=== PATIENT | female | born 1945 | race Caucasian/White ===

== ENCOUNTER 2018-11-13 22:39 | Emergency (ER) | payer MEDICARE, BC ==
--- NOTE | 2018-11-13 23:06 | Emergency Department Record ---
History of Present Illness - General Chief complaint: Edema Stated complaint: LT LEG SWELLLING Time Seen by Provider: 11/13/18 22:42 Source: Patient Mode of Arrival: Ambulatory Limitations: No limitations - History of Present Illness Initial comments: 73 yo female presents to ED for evaluation of swelling to the left lower extremity for the past several days. Patient denies history of DVT, denies history of CHF, denies use of anticoagulation medications. Patient denies recent immobilization or prolonged flight/car trips. Patient does report sacral fracture in July of this year, has been involved in PT through [facility]. MD Complaint: Extremity swelling Onset/Timin -: Days(s) Location: Left, Lower Leg History of Same: No Radiation: None Consistency: Constant Improves with: Nothing Worsens with: Nothing Associated Symptoms: Denies other symptoms - Related Data Allergies Allergy/AdvReac Type Severity Reaction Status Date / Time certolizumab pegol Allergy Mild NAUSEA Unverified 11/13/18 23:03 [From Cimzia] prochlorperazine Allergy Mild NAUSEA Unverified 11/13/18 23:03 [From Compazine] prochlorperazine edisylate Allergy Mild NAUSEA Unverified 11/13/18 23:03 [From Compazine] prochlorperazine maleate Allergy Mild NAUSEA Unverified 11/13/18 23:03 [From Compazine] ondansetron HCl Allergy RASH Unverified 02/09/17 12:52 [From Zofran (as hydrochloride)] Review of Systems Constitutional: Denies: Chills, Fever, Malaise, Night sweats Eyes: Denies: Eye discharge, Eye pain ENT: Denies: Congestion, Ear pain, Epistaxis Respiratory: Denies: Cough, Dyspnea Cardiovascular: Reports: Edema. Denies: Chest pain, Dyspnea on exertion Endocrine: Denies: Fatigue, Heat or cold intolerance Gastrointestinal: Denies: Abdominal pain, Nausea, Vomiting Genitourinary: Denies: Incontinence, Retention Musculoskeletal: Denies: Arthralgia, Back pain Skin: Denies: Bruising, Change in color Neurological: Denies: Abnormal gait, Confusion, Headache, Tingling, Tremors Psychiatric: Denies: Anxiety Hematological/Lymphatic: Denies: Anemia, Blood Clots Past Medical History - SOCIAL HISTORY Smoking Status: Former smoker - RESPIRATORY Hx Respiratory Disorders: No Hx Sleep Apnea: Yes Hx of CPAP: No - CARDIOVASCULAR Hx Cardio Disorders: No - NEURO Hx Neuro Disorders: Yes Hx Headaches: Yes Comment:: Fibromyalgia; small bleed in brain - GI Hx GI Disorders: Yes Hx Reflux: Yes - Hx Genitourinary Disorders: Yes Comment:: OAB - ENDOCRINE Hx Endocrine Disorders: No - MUSCULOSKELETAL Hx Musculoskeletal Disorders: Yes Hx Arthritis: (RA) - PSYCH Hx Psych Problems: No - HEMATOLOGY/ONCOLOGY Hx Hematology/Oncology Disorders: No Family Medical History Hx Cancer: Father Hx Heart Disease: Father, Mother, Grandparents *Heart Comment: [place]: Afib, pacer; CHF Hx Resp Disorders: Father, Grandparents Physical Exam - General General Appearance: Alert, Oriented x3, Cooperative, Mild distress Limitations: No limitations - Head Head exam: Atraumatic, Normocephalic, Normal inspection Head exam detail: negative: Abrasion, Contusion, Stringer's sign, General tenderness, Hematoma, Laceration - Eye Eye exam: Normal appearance. negative: Conjunctival injection, Periorbital swelling, Periorbital tenderness, Scleral icterus - ENT Ear exam: negative: Auricular hematoma, Auricular trauma Nasal Exam: negative: Active bleeding, Discharge, Dried blood, Foreign body Mouth exam: negative: Drooling, Laceration, Muffled voice, Tongue elevation - Neck Neck exam: Normal inspection. negative: Meningismus, Tenderness - Respiratory Respiratory exam: Normal lung sounds bilaterally. negative: Respiratory distress, Rhonchi, Stridor, Wheezes - Cardiovascular Cardiovascular Exam: Regular rate, Normal rhythm, Normal heart sounds - GI/Abdominal GI/Abdominal exam: Soft. negative: Distended, Rebound, Rigid, Tenderness - Rectal Rectal exam: Deferred - exam: Deferred - Extremities Extremities exam: Pedal edema, Other (There is 2+ edema LLE compared with trace edema RLE.). negative: Calf tenderness, Tenderness - Back Back exam: Denies: CVA tenderness (R), CVA tenderness (L) - Neurological Neurological exam: Alert, Normal gait, Oriented X3 - Psychiatric Psychiatric exam: Normal affect, Normal mood - Skin Skin exam: Normal color. negative: Abrasion Type of lesion: negative: abrasion Course - Reevaluation(s) Reevaluation #1: 11/13/18 23:05 Patient was seen and examined Doppler is un-available at this time of night. Will order D-Dimer and basic laboratory studies to assess for DVT/renal function and reassess. Reevaluation #2: 11/13/18 23:30 Laboratory studies were reviewed, D-Dimer is 0.64. Laboratory studies are otherwise grossly unremarkable for an acute process. Will initiate transfer to [facility] for doppler examination. Reevaluation #3: 11/13/18 23:38 Case was discussed with Dr. Noguera, will accept transfer for lower extremity doppler. Medical Decision Making - Lab Data Result diagrams: 11/13/18 23:08 11/13/18 23:08 Disposition Disposition: Transfer Clinical Impression: Edema of left lower extremity Disposition: Acute Care Hospital Transfer Transfer To: [facility] Reason For Transfer: Doppler US of the LLE Accepting Physician: Chuckie Time Discussed w/Accepting Physician: 23:37 Condition: (2) Stable Forms: Patient Portal Access Time of Disposition: 23:37 Quality - Quality Measures Quality Measures: N/A - Blood Pressure Screening Does Patient Have Any of the Following: No Blood Pressure Classification: Pre-Hypertensive BP Reading Systolic Measurement: 127 Diastolic Measurement: 75 Screening for High Blood Pressure: < Pre-Hypertensive BP, F/U Documented > [G8950] Pre-Hypertensive Follow-up Interventions: Referral to alternative/primary care provider.
[2018-11-13 23:16] LABS: ABSOLUTE NEUTROPHIL COUNT 3.98; BASO % 0.3 % (0-6); GRAN % 68.7 % (47-80); HEMATOCRIT 38.3 % (35.0-47.0); HEMOGLOBIN 12.3 gm/dl (11.6-16.0); MEAN CELL VOLUME 84.9 fl (81-97); MEAN CORPUSCULAR HEMOGLOBIN 27.3 pg (27-33); MEAN CORPUSCULAR HGB CONC 32.1 g/dl (32-36); MEAN PLATELET VOLUME 11.1 fl (7.4-10.4); PLATELET COUNT 197 K/uL (130-400); RED BLOOD COUNT 4.51 M/uL (3.80-5.40); WHITE BLOOD COUNT W/O DIFF 5.8 K/uL (4.2-12.2)
[2018-11-13 23:27] LABS: BLOOD UREA NITROGEN 25 mg/dL (8-23); CREATININE 0.7 mg/dL (0.5-0.9); EST GLOMERULAR FILTRATION RATE > 60 mL/min
[2018-11-13 23:30] LABS: GLUCOSE,RANDOM 191 mg/dL (74-109)
== END 2018-11-13 23:54 | disposition short-term general hospital (02) ==
LOC: ER 22:39
DX: R60.0 Localized edema (principal); R79.89 Other specified abnormal findings of blood chemistry; E11.9 Type 2 diabetes mellitus without complications; Z87.891 Personal history of nicotine dependence
CPT/HCPCS: 80048; 85025; 85379; 99285

== ENCOUNTER 2019-01-06 14:03 | Emergency (ER) | payer MEDICARE, BC ==
[2019-01-06] MEDS ORDERED: DIPHENHYDRAMINE HCL 50 MG/ML VIAL IM ONE (14:20)
--- NOTE | 2019-01-06 14:20 | Emergency Department Record ---
History of Present Illness - General Chief complaint: Rash Stated complaint: RASH Time Seen by Provider: 01/06/19 14:10 Source: Patient Mode of Arrival: Ambulatory Limitations: No limitations - History of Present Illness Initial comments: The patient states she has a hx of a chronic rash on her arms and legs. She states she gets it every month for 4-5 days and then it resolved. Now the patient has had the rash for 4 days but it is not going away. She denies any Cp, SOB, SKY, or any difficulty swallowing. She also denies any new medicines or any recent illnesses. The patient has been taking Atarax for the rash twice a day but it is not helping. MD complaint: Rash Onset/Timin -: Days(s) Improves with: None Worsens with: None Context: None Associated symptoms: Denies other symptoms - Related Data Home Medications Medication Instructions Recorded Confirmed Last Taken Hyoscyamine Sulfate 0.125 mg PO TID 01/06/19 01/06/19 Unknown Lisinopril/Hydrochlorothiazide 1 each PO DAILY 01/06/19 01/06/19 Unknown [Lisinopril-Hctz 20-12.5 mg Tab] Sulfamethoxazole/Trimethoprim 1 each PO BID 01/06/19 01/06/19 Unknown [Bactrim Ds Tablet] Previous Rx's Medication Instructions Recorded Diphenhydramine HCl [Benadryl] 25 mg PO Q6H #20 cap 01/06/19 Allergies Allergy/AdvReac Type Severity Reaction Status Date / Time certolizumab pegol Allergy Mild NAUSEA Unverified 11/13/18 23:03 [From Cimzia] prochlorperazine Allergy Mild NAUSEA Unverified 11/13/18 23:03 [From Compazine] prochlorperazine edisylate Allergy Mild NAUSEA Unverified 11/13/18 23:03 [From Compazine] prochlorperazine maleate Allergy Mild NAUSEA Unverified 11/13/18 23:03 [From Compazine] ondansetron HCl Allergy RASH Unverified 02/09/17 12:52 [From Zofran (as hydrochloride)] Travel Screening - Travel/Exposure Within Last 30 Days Have you traveled within the last 30 days?: No - Travel/Exposure Within Last Year Have you traveled outside the [place] in the last year?: No - Additonal Travel Details Have you been exposed to anyone with a communicable illness?: No - Travel Symptoms Symptom Screening: None Review of Systems Constitutional: Denies: Chills, Fever Eyes: Denies: Eye discharge ENT: Denies: Congestion Respiratory: Denies: Cough, Dyspnea Past Medical History - SOCIAL HISTORY Smoking Status: Former smoker Alcohol Use: None Drug Use: None - RESPIRATORY Hx Respiratory Disorders: No Hx Sleep Apnea: Yes Hx of CPAP: No - CARDIOVASCULAR Hx Cardio Disorders: No - NEURO Hx Neuro Disorders: Yes Hx Headaches: Yes Comment:: Fibromyalgia; small bleed in brain - GI Hx GI Disorders: Yes Hx Reflux: Yes - Hx Genitourinary Disorders: Yes Comment:: OAB - ENDOCRINE Hx Endocrine Disorders: No Hx Diabetes: Yes (type 2) - MUSCULOSKELETAL Hx Musculoskeletal Disorders: Yes Hx Arthritis: (RA) - PSYCH Hx Psych Problems: No Hx Depression: Yes - HEMATOLOGY/ONCOLOGY Hx Hematology/Oncology Disorders: No Family Medical History Any Significant Family History?: No Hx Cancer: Father Hx Heart Disease: Father, Mother, Grandparents *Heart Comment: [place]: Afib, pacer; CHF Hx Resp Disorders: Father, Grandparents Physical Exam - General General Appearance: Alert, Oriented x3, Cooperative, No acute distress - Head Head exam: Atraumatic, Normocephalic, Normal inspection - Eye Eye exam: Normal appearance, PERRL, EOMI - ENT Throat exam: Normal inspection. negative: Tonsillar erythema, Tonsillar exudate - Neck Neck exam: Normal inspection, Full ROM. negative: Tenderness - Respiratory Respiratory exam: Normal lung sounds bilaterally. negative: Respiratory distress - Cardiovascular Cardiovascular Exam: Regular rate, Normal rhythm, Normal heart sounds - GI/Abdominal GI/Abdominal exam: Soft, Normal bowel sounds. negative: Tenderness - Extremities Extremities exam: Normal inspection, Full ROM, Normal capillary refill. negative: Tenderness - Neurological Neurological exam: Alert. negative: Motor sensory deficit - Skin Skin exam: Urticaria (There is a blanching urticarial rash to the arms and posterior L leg. It is not tender or warm and there is no arm or leg swelling or pain.) Course Vital Signs 01/06/19 14:06 Temperature 98.0 F Pulse Rate 95 H Respiratory 16 Rate Blood Pressure 118/73 Pulse Ox 96 - Reevaluation(s) Reevaluation #1: The patient is doing well at this time and the itching is gone. She is ready for home. 01/06/19 14:39 Reevaluation #2: After reviewing the patient's medication sheet it seems she has been on Bactrim for a UTI for 5 days. The patient states the rash started before the Bactrim and she has had the drug multiple times without any issues. She does not believe the rash is due to the Bactrim and would like to continue it per her doctor's instructions. 01/06/19 14:43 Disposition Disposition: Discharge Clinical Impression: Urticaria Disposition: Home, Self-Care Condition: (2) Stable Instructions: Acute Rash (ED) Additional Instructions: Please take the Benadryl as directed and please see your family doctor later this week if not better. Prescriptions: Diphenhydramine HCl [Benadryl] 25 mg PO Q6H #20 cap Forms: Patient Portal Access Time of Disposition: 14:41 Quality - Quality Measures Quality Measures: N/A - Blood Pressure Screening View Details: Yes Does Patient Have Any of the Following: No Blood Pressure Classification: Normal BP Reading Systolic Measurement: 118 Diastolic Measurement: 73 Screening for High Blood Pressure: < Normal BP, F/U Not Required > [G8783]
== END 2019-01-06 14:47 | disposition home or self-care (01) ==
LOC: ER 14:03
DX: L50.8 Other urticaria (principal); Z87.891 Personal history of nicotine dependence; E11.9 Type 2 diabetes mellitus without complications
CPT/HCPCS: 96372; 99284; J1200

== ENCOUNTER 2019-03-22 20:57 | Emergency (ER) | payer MEDICARE, BC ==
[2019-03-22 21:42] LABS: ABSOLUTE NEUTROPHIL COUNT 6.34; BASO % 0.1 % (0-6); EOS % 3.4 % (0-6); GRAN % 72.8 % (47-80); HEMATOCRIT 38.1 % (35.0-47.0); LYMPH % 14.8 % (16-45); MEAN CORPUSCULAR HEMOGLOBIN 25.2 pg (27-33); MEAN CORPUSCULAR HGB CONC 31.5 g/dl (32-36); MEAN PLATELET VOLUME 10.2 fl (7.4-10.4); MONO % 8.9 % (0-9); PLATELET COUNT 356 K/uL (130-400); RED BLOOD COUNT 4.76 M/uL (3.80-5.40); RED CELL DISTRIBUTION WIDTH 15.9 % (11.5-14.5); WHITE BLOOD COUNT W/O DIFF 8.7 K/uL (4.2-12.2)
[2019-03-22 21:56] LABS: BILIRUBIN,TOTAL 0.3 mg/dL (0.2-1.0); CREATININE 1.4 mg/dL (0.5-0.9)
[2019-03-22 21:57] LABS: TOTAL PROTEIN 7.2 g/dL (6.6-8.7)
[2019-03-22 22:02] LABS: ALB/GLOB RATIO 1.3 (1.1-1.8)
--- NOTE | 2019-03-22 22:21 | CT SCAN REPORT ---
EXAMINATION: CT Abdomen and Pelvis without IV Contrast EXAM DATE: 03/22/2019 10:13 PM TECHNIQUE: Standard protocol CT imaging of the abdomen and pelvis was performed without intravenous c ontrast. INDICATION: fall COMPARISON: None ENCOUNTER: Not applicable CT ABDOMEN AND PELVIS FINDINGS: Lung Bases: Sliding-type hiatal hernia Hepatobiliary: The liver has a normal size with a smooth surface. Pancreas: The pancreas is normal. Spleen: Splenic granulomatous disease Adrenals: The adrenal glands are normal. Kidneys, Ureters, & Bladder: Both kidneys have a normal size and morphology. There is no hydronephro sis. Both ureters have a normal course and caliber and the urinary bladder a normal morphology and un iform wall thickness. No ureteral or bladder calculi are identified. Gastrointestinal: The stomach and small bowel are normal with no obstruction or inflammation. The lar ge bowel is within normal limits. Reproductive Organs: Unremarkable Lymphatic System: There is no adenopathy within the abdomen or pelvis. Vasculature: Normal caliber abdominal aorta Peritoneum: No free fluid, free air, or inflammation Abdominal wall & Musculoskeletal: No suspicious bone lesions. Assessment of the solid organs, soft tissues, and vascular structures is overall limited on noncontra st imaging, IMPRESSION: Large sliding-type hiatal hernia. No obstructive uropathy. Dictated by: Paulina Azevedo DO on 03/22/2019 10:16 PM. .
[2019-03-22 22:43] LABS: URINE BILIRUBIN MODERATE (NEGATIVE); URINE BLOOD NEGATIVE (NEGATIVE); URINE GLUCOSE (UA) NEGATIVE (NEGATIVE); URINE KETONE TRACE (NEGATIVE); URINE LEUKOCYTE ESTERASE SMALL (NEGATIVE); URINE NITRITE NEGATIVE (NEGATIVE); URINE UROBILINOGEN 0.2 E.U./dL (0.20 - 1.00)
[2019-03-22 22:45] LABS: URINE APPEARANCE SL CLOUDY; URINE COLOR DARK YELLOW
[2019-03-22 22:51] LABS: URINE BACTERIA 2+; URINE RBC 0 - 2 (NONE SEEN)
[2019-03-22] MEDS ORDERED: 0.9 % SODIUM CHLORIDE 1,000 ML BAG IV ONE (23:17)
[2019-03-22] MEDS ORDERED: CEPHALEXIN 500 MG CAPSULE PO STA (23:20)
[2019-03-22] MEDS ORDERED: HYDROCODONE/APAP 5/325MG TABLET PO ONE (23:20)
--- NOTE | 2019-03-23 00:02 | Emergency Department Record ---
History of Present Illness - General Chief Complaint: Back Pain/Injury Stated Complaint: BACK PAIN Time Seen by Provider: 03/22/19 21:13 Source: Patient Mode of Arrival: Ambulatory Limitations: No limitations - History of Present Illness Initial Comments: pt fell the day after thanksgiving landing on her r side. the pain in her abdomen has gradually increased, Complaint: Back injury, Other -: Week(s) Place: Home Severity: Severe Severity scale (1-10): 7 Quality: Aching Consistency: Constant Improves With: None Worsens With: Movement, Sitting upright, Walking Context: Fall Associated Symptoms: Difficulty urinating, Difficulty walking - Related Data Home Medications Medication Instructions Recorded Confirmed Last Taken Duloxetine HCl 60 mg PO DAILY 03/22/19 03/22/19 03/22/19 Pioglitazone HCl [Actos] 15 mg PO DAILY 03/22/19 03/22/19 03/22/19 Prednisone [Prednisone 5Mg] 5 mg PO DAILY 03/22/19 03/22/19 03/22/19 Propranolol HCl [Propranolol HCl 60 mg PO DAILY 03/22/19 03/22/19 03/22/19 ER] Tramadol HCl 50 mg PO TID 03/22/19 03/22/19 03/22/19 Previous Rx's Medication Instructions Recorded Cephalexin [Keflex] 500 mg PO BID #7 cap 03/23/19 Hydrocodone/Acetaminophen [[place] 1 each PO Q6HR #7 tablet 03/23/19 5-325 Tablet] Allergies Allergy/AdvReac Type Severity Reaction Status Date / Time certolizumab pegol Allergy Mild NAUSEA Unverified 11/13/18 23:03 [From Cimzia] prochlorperazine Allergy Mild NAUSEA Unverified 11/13/18 23:03 [From Compazine] prochlorperazine edisylate Allergy Mild NAUSEA Unverified 11/13/18 23:03 [From Compazine] prochlorperazine maleate Allergy Mild NAUSEA Unverified 11/13/18 23:03 [From Compazine] ondansetron HCl Allergy RASH Unverified 02/09/17 12:52 [From Zofran (as hydrochloride)] Travel Screening - Travel/Exposure Within Last 30 Days Have you traveled within the last 30 days?: No - Travel Symptoms Symptom Screening: None Review of Systems Reviewed: No additional complaints except as noted below Constitutional: Reports: As per HPI. Denies: Chills, Fever, Malaise, Night sw eats, Weakness, Weight change Eyes: Reports: As per HPI. Denies: Eye discharge, Eye pain, Photophobia, Vision change ENT: Reports: As per HPI. Denies: Congestion, Dental pain, Ear pain, Epistaxis, Hearing loss, Throat pain Respiratory: Reports: As per HPI. Denies: Cough, Dyspnea, Hemoptysis, Stridor, Wheezes Cardiovascular: Reports: As per HPI. Denies: Arrhythmia, Chest pain, Dyspnea on exertion, Edema, Murmurs, Orthopnea, Palpitations, Paroxysmal nocturnal dyspnea, Rheumatic Fever, Syncope Endocrine: Reports: As per HPI. Denies: Fatigue, Heat or cold intolerance, Polydipsia, Polyuria Gastrointestinal: Reports: As per HPI, Abdominal pain. Denies: Constipation, Diarrhea, Hematemesis, Hematochezia, Melena, Nausea, Vomiting Genitourinary: Reports: As per HPI. Denies: Abnormal menses, Discharge, Dyspareunia, Dysuria, Frequency, Hematuria, Incontinence, Retention, Urgency Musculoskeletal: Reports: As per HPI. Denies: Arthralgia, Back pain, Gout, Joint swelling, Myalgia, Neck pain Skin: Reports: As per HPI. Denies: Bruising, Change in color, Change in hair /nails, Lesions, Pruritus, Rash Neurological: Reports: As per HPI. Denies: Abnormal gait, Confusion, Headache, Numbness, Paresthesias, Seizure, Tingling, Tremors, Vertigo, Weakness Psychiatric: Reports: As per HPI. Denies: Anxiety, Auditory hallucinations, Depression, Homicidal thoughts, Suicidal thoughts, Visual hallucinations Hematological/Lymphatic: Reports: As per HPI. Denies: Anemia, Blood Clots, Easy bleeding, Easy bruising, Swollen glands Past Medical History - SOCIAL HISTORY Smoking Status: Former smoker Alcohol Use: None Drug Use: None - RESPIRATORY Hx Respiratory Disorders: Yes Hx Sleep Apnea: Yes Hx of CPAP: No - CARDIOVASCULAR Hx Cardio Disorders: No - NEURO Hx Neuro Disorders: Yes Hx Headaches: Yes Comment:: Fibromyalgia; small bleed in brain - GI Hx GI Disorders: Yes Hx Reflux: Yes - Hx Genitourinary Disorders: Yes Comment:: OAB - ENDOCRINE Hx Endocrine Disorders: No Hx Diabetes: Yes (type 2) - MUSCULOSKELETAL Hx Musculoskeletal Disorders: Yes Hx Arthritis: (RA) - PSYCH Hx Psych Problems: Yes Hx Depression: Yes - HEMATOLOGY/ONCOLOGY Hx Hematology/Oncology Disorders: No Family Medical History Any Significant Family History?: Yes Hx Cancer: Father Hx Heart Disease: Father, Mother, Grandparents *Heart Comment: [place]: Afib, pacer; CHF Hx Resp Disorders: Father, Grandparents Physical Exam - General General Appearance: Alert, Oriented x3, Cooperative, Mild distress - Head Head exam: Normal inspection - Eye Eye exam: Normal appearance, PERRL, EOMI Pupils: Normal accommodation - ENT ENT exam: Normal exam, Mucous membranes moist, Normal external ear exam, Normal orophraynx Ear exam: Normal external inspection. negative: External canal tenderness Nasal Exam: Normal inspection. negative: Discharge, Sinus tenderness Mouth exam: Normal external inspection, Tongue normal Teeth exam: Normal inspection. negative: Dental caries Throat exam: Normal inspection. negative: Tonsillar erythema, Tonsillar exudate - Neck Neck exam: Normal inspection, Full ROM. negative: Tenderness - Respiratory Respiratory exam: Normal lung sounds bilaterally. negative: Respiratory distress - Cardiovascular Cardiovascular Exam: Regular rate, Normal rhythm, Normal heart sounds - GI/Abdominal GI/Abdominal exam: Soft, Normal bowel sounds, Tenderness - Rectal Rectal exam: Deferred - exam: Deferred - Extremities Extremities exam: Normal inspection, Full ROM, Normal capillary refill. negative: Tenderness - Back Back exam: Reports: Normal inspection, Full ROM. Denies: Muscle spasm, Rash noted, Tenderness - Neurological Neurological exam: Alert, CN II-XII intact, Normal gait, Oriented X3 - Psychiatric Psychiatric exam: Normal affect, Normal mood - Skin Skin exam: Dry, Intact, Normal color, Warm Course Vital Signs 03/22/19 03/22/19 21:06 22:36 Temperature 97.8 F Pulse Rate [ 84 82 Left] Respiratory 16 20 Rate Blood Pressure 94/60 103/63 [Left Arm] Pulse Ox 98 98 - Reevaluation(s) Reevaluation #1: 03/23/19 00:00 ct is neg Medical Decision Making - Lab Data Result diagrams: 03/22/19 21:35 03/22/19 21:35 Lab Results 03/22/19 03/22/19 03/22/19 Range/Units 21:35 21:35 22:30 WBC 8.7 (4.2-12.2) K/uL RBC 4.76 (3.80-5.40) M/uL Hgb 12.0 (11.6-16.0) gm/dl Hct 38.1 (35.0-47.0) % MCV 80.0 L (81-97) fl MCH 25.2 L (27-33) pg MCHC 31.5 L (32-36) g/dl RDW 15.9 H (11.5-14.5) % Plt Count 356 (130-400) K/uL MPV 10.2 (7.4-10.4) fl Gran % 72.8 (47-80) % Lymphocytes % 14.8 L (16-45) % Monocytes % 8.9 (0-9) % Eosinophils % 3.4 (0-6) % Basophils % 0.1 (0-6) % Absolute Neutrophils 6.34 Sodium 134 L (136-145) mmol/L Potassium 3.8 (3.4-4.5) mmol/L Chloride 93 L (98-107) mmol/L Carbon Dioxide 25.0 (22-29) mmol/L Anion Gap 16.0 (7-16) BUN 32 H (8-23) mg/dL Creatinine 1.4 H (0.5-0.9) mg/dL Estimated GFR 39 mL/min Random Glucose 107 (74-109) mg/dL Calcium 10.5 H (8.8-10.2) mg/dL Total Bilirubin 0.30 (0.2-1.0) mg/dL AST 11 (10.0-35.0) U/L ALT 7 (<33) U/L Alkaline Phosphatase 90 (35-104) U/L Total Protein 7.2 (6.6-8.7) g/dL Albumin 4.0 (4.0-5.0) g/dL Globulin 3.2 (1.4-4.8) gm/dL Albumin/Globulin Ratio 1.3 (1.1-1.8) Urine Color Dark yellow Urine Appearance Sl cloudy Urine pH 5.5 (5.0-8.0) Ur Specific [place] 1.025 (1.002-1.030) Urine Protein 30 mg/dl H (NEGATIVE) Urine Glucose (UA) Negative (NEGATIVE) Urine Ketones Trace H (NEGATIVE) Urine Blood Negative (NEGATIVE) Urine Nitrite Negative (NEGATIVE) Urine Bilirubin Moderate H (NEGATIVE) Urine Urobilinogen 0.2 (0.20 - 1.00) E.U./dL Ur Leukocyte Esterase Small H (NEGATIVE) Urine RBC 0 - 2 (NONE SEEN) Urine WBC 10 - 15 (0-2/hpf) Ur Epithelial Cells 7 - 10 (FEW) Urine Bacteria 2+ Hyaline Casts 11 - 15 /lpf Disposition Disposition: Discharge Clinical Impression: Fall (on) (from) other stairs and steps, initial encounter UTI (urinary tract infection) Qualifiers: Urinary tract infection type: acute cystitis Hematuria presence: without hematuria Qualified Code(s): N30.00 - Acute cystitis without hematuria Disposition: Home, Self-Care Condition: (1) Good Instructions: Urinary Tract Infection in Women (ED) Additional Instructions: follow up with family doctor. return sooner if worse. Prescriptions: Hydrocodone/Acetaminophen [[place] 5-325 Tablet] 1 each PO Q6HR #7 tablet Cephalexin [Keflex] 500 mg PO BID #7 cap Quality - Quality Measures Quality Measures: N/A - Blood Pressure Screening Does Patient Have Any of the Following: No Blood Pressure Classification: Normal BP Reading Systolic Measurement: 103 Diastolic Measurement: 63 Screening for High Blood Pressure: < Normal BP, F/U Not Required > [G8783]
== END 2019-03-23 00:14 | disposition home or self-care (01) ==
LOC: ER 20:57
DX: G89.11 Acute pain due to trauma (principal); M25.551 Pain in right hip; M54.5 Low back pain; N30.00 Acute cystitis without hematuria; R26.2 Difficulty in walking, not elsewhere classified; W10.9XXA Fall (on) (from) unspecified stairs and steps, initial encounter; Y92.009 Unspecified place in unspecified non-institutional (private) residence as the place of occurrence of the external cause; E11.9 Type 2 diabetes mellitus without complications; Z87.891 Personal history of nicotine dependence
CPT/HCPCS: 74176; 80053; 81001; 85025; 99284; J7030